=== PATIENT | female | born 1985 | race Caucasian/White ===

== ENCOUNTER 2025-01-17 01:39 | Emergency (ER) | payer BC, SELFPAY ==
--- NOTE | 2025-01-17 | ECG_ITS ---
Test Reason : SOB Blood Pressure : */* mmHG Vent. Rate : 149 BPM Atrial Rate : 149 BPM P-R Int : 126 ms QRS Dur : 74 ms QT Int : 330 ms P-R-T Axes : 75 84 78 degrees QTcB Int : 519 ms Sinus tachycardia with occasional Premature ventricular complexes Otherwise normal ECG No previous ECGs available Referred By: Generic ED Physician Electronically Signed By: SAIRA GOODEN MD
--- NOTE | ~2025-01-17 | XR_ITS ---
CLINICAL HISTORY: Dyspnea CHEST X-RAY FRONTAL VIEW COMPARISON: None provided. FINDINGS: A single frontal view of the chest was performed. Right upper hemithorax is partially obscured by something external to the patient. The patient is rotated to the right. The cardiac silhouette is accentuated by the portable technique. Increased density is noted adjacent to the right heart border, raising the question of an infiltrate. No consolidation or pleural effusion. No pneumothorax. IMPRESSION: 1. Increased density is noted in the right lung base, adjacent to the right heart border. This raises the question of an infiltrate. CT scan of the chest in the ER is advised for a more accurate assessment. This document has been electronically signed by: Rene Iniguez M.D. on 01/17/2025 04:43:39
[2025-01-17 01:42] VITALS: BP 139/63; PULSE 124; RESP 18; TEMP 36.7; O2SAT 93; BMI 25.7
--- NOTE | 2025-01-17 01:59 | ED.SOB ---
HPI - SOB/Dyspnea General Chief Complaint: Dyspnea Stated Complaint: Asthma Time Seen by Provider: 01/17/25 01:58 Source: patient Mode of arrival: ambulatory Limitations: no limitations History of Present Illness ED Provider: Dr. Gaye Cooper HPI Narrative: Patient comes to the emergency room complaining of shortness of breath. Patient states that last week she had an asthma exacerbation. Patient states that she used to have childhood asthma grew out of it. For 15+ years she did not have an asthma exacerbation until last week. Patient was giving albuterol pump and prednisone. A few days after she stopped the treatment, she started wheezing again. At home, she has been using normal saline nebulizations without any relief. Related Data Previous Rx's ?Medication ?Instructions ?Recorded albuterol sulfate 2.5 mg/3 mL 2.5 mg (3 mL) inhalation Q4-6H PRN 01/17/25 (0.083 %) solution for nebulization shortness of breath or wheezing #75 mL albuterol sulfate 90 mcg/actuation 2 puff inhalation Q4-6H PRN 01/17/25 aerosol inhaler (Ventolin HFA) shortness of breath or wheezing #8.5 grams doxycycline hyclate 100 mg tablet 100 mg PO BID 7 days #14 tabs 01/17/25 prednisone 50 mg tablet 50 mg PO DAILY #5 tabs 01/17/25 Allergies Allergy/AdvReac Type Severity Reaction Status Date / Time No Known Allergies Allergy Verified 01/17/25 01:45 Review of Systems Review of Systems: Constitutional : No Weight loss, No Fever, No Chills, No Night Sweats, No Fatigue, No Malaise ENT/Mouth : No Hearing loss, No Ear Pain, No Nasal Congestion, No Sinus Pain, No Hoarseness, No sore throat, No Rhinorrhea, No Swallowing Difficulty Eyes: No Eye Pain, No Swelling, No Redness, No Foreign Body, No Discharge, No Vision Changes Cardiovascular : No Chest Pain, denies orthopnea, no edema or palpitations Respiratory : Complaining of cough, wheezing shortness of breath Gastrointestinal : No Nausea, No Vomiting, No Diarrhea, No Constipation, No abdominal Pain, No Hematochezia, No Melena Genitourinary : no irregular bleeding, No Dysuria, No Urinary Frequency, No Hematuria, No Urinary Incontinence, No Urgency, No Flank Pain, No Urinary Flow Changes, No Hesitancy Musculoskeletal : No joint pain, No Myalgias, No Joint Swelling Skin : No Skin Lesions, No rash Neuro : No Weakness, No Numbness, No Paresthesias, No Loss of Consciousness, No Dizziness, No Headache Psych : No Anxiety/Panic, No Depression, No SI/HI/AH/VH, No Social Issues, Heme/Lymph: No Bruising, No Bleeding,No Lymphadenopathy Endocrine : No Polyuria, No Polydipsia, No Temperature Intolerance [facility] Past Medical History Medical History (Updated 01/17/25 @ 05:27 by Gaye Cooper MD) Asthma Social History Social History Advance Directives: No Advance Directives Information Provided: Yes Patient : No Physical Exam Exam: Exam: Appearance: Alert. Oriented X3. Eyes: Pupils equal, round and reactive to light. ENT: Pharynx normal. Neck: Normal inspection. Neck supple. No lymph nodes noted. No crepitus CVS: Normal heart rate and rhythm. Pulses normal. Normal S1 and S2 Respiratory: decreased air movement bilaterally, bilateral wheezing, oxygen saturation 93% on room air Abdomen: Soft and nontender. No rigidity. No distention. Skin: Skin warm and dry. Normal skin color. Normal skin turgor. Extremities: No lower extremity edema. No Lacerations. No Rash Neuro: Oriented X 3. No motor deficit. No sensory deficit. Moving all extremities. No slurred speech. CN 2 through 12 grossly intact Psych: calm, cooperative, normal affect Vital Signs: Vital Signs: Last Vital Signs Temp 98.0 F 01/17/25 05:19 Pulse 104 H 01/17/25 05:19 Resp 20 01/17/25 05:19 BP 113/62 01/17/25 05:19 Pulse Ox 96 01/17/25 05:19 O2 Del Method Room Air 01/17/25 02:54 BMI result Body Mass Index 25.7 Course Course Course Narrative: patient was started on a Bronch protocol, also receiving IV magnesium and Solu-Medrol. all of patient's labs and imaging pending. Medications Administered Discontinued Medications Generic Name Dose Route Start Last Admin Trade Name Freq PRN Reason Stop Dose Admin Albuterol Sulfate 5 mg/ 0 mg 01/17/25 02:20 01/17/25 02:27 Albuterol/Ipratropium 3 ml INHALE 01/17/25 02:21 7.5 each ONCE ONE Administration Magnesium Sulfate 2 gm in 50 mls @ 150 mls/hr 01/17/25 01:58 01/17/25 02:35 Magnesium Sulfate/H2o IV 01/17/25 02:17 Infused ONCE ONE Infusion Methylprednisolone Sodium Succinate 125 mg 01/17/25 01:58 01/17/25 02:12 Methylprednisolone Sod Succ 125 Mg/2 Ml Vial IVPUSH 01/17/25 01:59 125 mg ONCE ONE Administration Medical Decision Making Medical Decision Making [facility] Narrative: My interpretation eyes: Patient's white count 17.9, likely reactive leukocytosis, patient has been on prednisone for several days. No significant abnormality in patient's chemistry, normal LFTs, serology and negative for influenza RSV and COVID Chest x-rays is suspicious for a possible developing infiltrate. Since patient has not had any asthma exacerbation and now she has a questionable infiltrate, we will treat as pneumonia. Likely causing the patient's asthma exacerbations Patient is otherwise healthy, patient was given a dose of p.o. doxycycline in the ED. Differential Diagnosis Differential Diagnoses: The differential diagnosis associated with the presentation includes ( RSV, COVID, influenza, asthma exacerbation) Admission/Observation Consideration of admission/observation: Escalation of care including admission/observation considered (Given patient's initial presentation, observation was considered) Lab Data [facility] Lab Attestation statement: I reviewed the patient's lab results. 01/17/25 02:08 01/17/25 02:08 Labs: Lab Results 01/17/25 Range/Units 02:08 WBC 17.9 H (4.8-10.8) X10*3/uL RBC 4.15 L (4.20-5.50) X10*6/uL Hgb 12.7 (12.0-16.0) g/dl Hct 37.1 (37.0-47.0) % MCV 89.4 (80.0-98.0) fL MCH 30.6 (27.0-33.0) pg MCHC 34.2 (31.0-35.0) g/dl RDW 14.6 (11.0-16.0) % Plt Count 368 (160-400) X10*3/uL MPV 10.1 (9.4-12.3) fL Immature Gran % (Auto) 0.4 (0.0-0.4) % Neut % (Auto) 74.9 H (45-73) % Lymph % (Auto) 15.8 L (20-40) % [place] % (Auto) 5.1 (2-11) % Eos % (Auto) 3.1 (0-4) % Baso % (Auto) 0.7 (0-2) % Lymph # (Auto) 2.8 (1.2-4.9) X10*3/uL [place] # (Auto) 0.9 (0.1-1.2) X10*3/uL Eos # (Auto) 0.6 H (0.0-0.4) X10*3/uL Baso # (Auto) 0.1 (0.0-0.2) X10*3/uL Abs Immat Gran (auto) 0.08 H (0.00-0.03) X10*3/uL Absolute Neuts (auto) 13.4 H (2.0-8.3) x10*3/uL Absolute Nucleated RBC 0.000 (0.0-0.012) X10*3/uL Nucleated RBC % (auto) 0.0 (0.0-0.2) /100WBC Sodium 137 (135-145) mmol/L Potassium 4.0 (3.3-5.1) mmol/L Chloride 109 H (96-108) mmol/L Carbon Dioxide 19 L (22-29) mmol/L Anion Gap 13 (12-20) BUN 13 (9-16) mg/dL Creatinine 0.60 (0.5-1.4) mg/dL Estim Creat Clear Calc 121.2 Estimated GFR > 60 Random Glucose 124 H (60-115) mg/dL Calcium 8.7 (8.4-10.2) mg/dL Magnesium 2.1 (1.6-2.6) mg/dL Total Bilirubin 0.1 (0.0-1.0) mg/dL AST 20 (5-31) U/L ALT 18 (0-31) U/L Alkaline Phosphatase 62 (39-117) U/L Total Protein 7.2 (6.5-8.0) g/dL Albumin 4.2 (3.5-5.0) g/dL Influenza Type A (PCR) NEGATIVE (Negative) Influenza Type B (PCR) NEGATIVE (Negative) RSV RNA Qual (PCR) NEGATIVE (Negative) SARS-CoV-2 RNA (RT-PCR) NEGATIVE (Negative) Independent Interpretation I performed an independent interpretation of an: Plain X-Ray Radiology Impression Discussion of test interpretation with radiology: I have reviewed the radiologist's reading. Radiologist Impression: FINDINGS: A single frontal view of the chest was performed. Right upper hemithorax is partially obscured by something external to the patient. The patient is rotated to the right. The cardiac silhouette is accentuated by the portable technique. Increased density is noted adjacent to the right heart border, raising the question of an infiltrate. No consolidation or pleural effusion. No pneumothorax. IMPRESSION: 1. Increased density is noted in the right lung base, adjacent to the right heart border. This raises the question of an infiltrate. CT scan of the chest in the ER is advised for a more accurate assessment Critical Care Time Critical Care Time Critical Care Time: Yes Total Critical Care Time: 35 Attestation: I have personally provided critical care time. Time includes review of lab data, radiology results, discussion with consultants, and monitoring for potential decompensation. Intervention performed as documented. Discharge Plan Discharge Clinical Impression: Asthma with exacerbation, Pneumonia Patient Disposition: Home, Self-Care Instructions: Asthma (ED) Additional Instructions: Please follow-up with your primary care physician tomorrow. If you have any worsening or new symptoms, please return to the emergency room or call 911 Prescriptions: New doxycycline hyclate 100 mg tablet 100 mg PO BID 7 Days Qty: 14 0RF albuterol sulfate 2.5 mg /3 mL (0.083 %) solution for nebulization 2.5 mg inhalation Q4-6H PRN (Reason: shortness of breath or wheezing) Qty: 75 0RF prednisone 50 mg tablet 50 mg PO DAILY Qty: 5 0RF albuterol sulfate [Ventolin HFA] 90 mcg/actuation HFA aerosol inhaler 2 puff inhalation Q4-6H PRN (Reason: shortness of breath or wheezing) Qty: 8.5 1RF Print Language: Setswana
[2025-01-17] MEDS: Magnesium Sulfate/H2O 2 GM/50 ML PIGGYBACK IV (02:12)
[2025-01-17 02:13] LABS: MANUAL DIFF FLAG NO
[2025-01-17 02:14] LABS: Hematocrit 37.1 % (37.0-47.0); Hemoglobin 12.7 g/dl (12.0-16.0); Imm Gran Abs Auto 0.08 X10*3/uL (0.00-0.03); Imm Gran Pct Auto 0.4 % (0.0-0.4); Lymphocytes Absolute Auto 2.8 X10*3/uL (1.2-4.9); Mean Corpuscular HGB Conc 34.2 g/dl (31.0-35.0); Mean Corpuscular Hemoglobin 30.6 pg (27.0-33.0); Mean Corpuscular Volume 89.4 fL (80.0-98.0); NRBC Abs Auto 0.000 X10*3/uL (0.0-0.012); NRBC Pct Auto 0.0 /100WBC (0.0-0.2); Platelet Count 368 X10*3/uL (160-400); Red Blood Count 4.15 X10*6/uL (4.20-5.50); White Blood Count 17.9 X10*3/uL (4.8-10.8)
--- NOTE | 2025-01-17 02:24 | PC.NURSE ---
pt medicated pr MAR, respiratory therapy at bedside.
[2025-01-17 02:25] VITALS: PULSE 101; RESP 18; O2SAT 96
[2025-01-17] MEDS: Albuterol Sulfate 5 MG, Albuterol/Iprat 2.5/0.5MG 3 ML 3 ML INHALE (02:27)
[2025-01-17 02:30] LABS: Alanine Aminotransferase 18 U/L (0-31); Albumin Level 4.2 g/dL (3.5-5.0); Alkaline Phosphatase 62 U/L (39-117); Anion Gap 13 (12-20); Aspartate Amino Transferase 20 U/L (5-31); Blood Urea Nitrogen 13 mg/dL (9-16); Calcium 8.7 mg/dL (8.4-10.2); Carbon Dioxide 19 mmol/L (22-29); Chloride 109 mmol/L (96-108); Creatinine Clr Calc Pharmacy 121.2; Estimated Glomerular Filt Rate > 60; Magnesium 2.1 mg/dL (1.6-2.6); Potassium 4.0 mmol/L (3.3-5.1); Sodium 137 mmol/L (135-145); Total Protein 7.2 g/dL (6.5-8.0)
[2025-01-17 02:54] VITALS: O2SAT 96
--- NOTE | 2025-01-17 02:54 | PC.NURSE ---
respiratory tx complete, pt reports feeling much better, sp02 at 96% room air.
[2025-01-17 02:57] LABS: Resp Syncy Virus RNA Qual PCR NEGATIVE (Negative); SARS COV2 PCR INHOUSE NEGATIVE (Negative)
--- NOTE | 2025-01-17 05:09 | ECG_ITS ---
Test Reason : REPEAT SOB Blood Pressure : */* mmHG Vent. Rate : 102 BPM Atrial Rate : 102 BPM P-R Int : 140 ms QRS Dur : 80 ms QT Int : 370 ms P-R-T Axes : 61 4 48 degrees QTcB Int : 482 ms Sinus tachycardia Possible Inferior infarct , age undetermined Abnormal ECG When compared with ECG of 17-Jan-2025 02:01, Premature ventricular complexes are no longer Present Questionable change in QRS axis Referred By: Gaye Cooper Electronically Signed By: SIARA GOODEN MD
[2025-01-17 05:19] VITALS: BP 113/62; PULSE 104; RESP 20; TEMP 36.7; O2SAT 96
--- NOTE | 2025-01-17 05:48 | MHC.EDTECH ---
ambulation trial at this time. pt o2 96%-97%. HR 115
[2025-01-17 05:49] VITALS: BP 109/65; PULSE 98; RESP 18; TEMP 36.6; O2SAT 96
== END 2025-01-17 05:50 | disposition home or self-care (01) ==
PROVIDERS: Emergency Provider Emergency Medicine
DX: J45.901 Unspecified asthma with (acute) exacerbation (principal); J18.9 Pneumonia, unspecified organism
CPT/HCPCS: 71045; 80053; 83735; 85025; 87637; 93005; 94640; 96365; 96375; 99285; J2919; J3475

== ENCOUNTER → 2025-01-17 02:01 | Outpatient (BNV) | payer BC, SELFPAY | PROVIDERS: Emergency Provider Emergency Medicine; Visit Provider Internal Medicine Cardiovascular Disease | DX: R00.0 Tachycardia, unspecified (principal); I49.3 Ventricular premature depolarization | CPT/HCPCS: 93010 ==

== ENCOUNTER → 2025-01-17 02:42 | Outpatient (BNV) | payer BC, SELFPAY | PROVIDERS: Emergency Provider Emergency Medicine; Visit Provider Radiology Diagnostic Radiology | DX: R91.8 Other nonspecific abnormal finding of lung field (principal) | CPT/HCPCS: 71045 ==